=== PATIENT | male | born 2000 | race Caucasian/White ===

== ENCOUNTER 2019-05-03 08:50 | Emergency (ER) | payer SELFPAY ==
[~2019-05-03] VITALS: Wt 92.8 kg
[~2019-05-03 08:50] MED LIST: CEPH-443 PO
[2019-05-03 08:53] VITALS: BP 155/74; PULSE 60; RESP 18
[2019-05-03] MEDS ORDERED: AZITHROMYCIN 500 MG TAB PO ONE (09:30)
[2019-05-03] MEDS ORDERED: LIDOCAINE 1% (MPF) 5 ML VIAL INJ ONE (09:30)
[2019-05-03] MEDS ORDERED: CEFTRIAXONE 250 MG INJ IM ONE (09:30)
== END 2019-05-03 11:04 | disposition home or self-care (01) ==
LOC: FTE 08:50
DX: N34.2 Other urethritis (principal); F17.210 Nicotine dependence, cigarettes, uncomplicated; Z72.51 High risk heterosexual behavior
CPT/HCPCS: 81001; 87591; 96372; 99284; J0696